=== PATIENT | male | born 1960 | race Caucasian/White ===

== ENCOUNTER → 2020-06-26 11:11 | Outpatient (BNVA) | payer SELFPAY | PROVIDERS: Visit Provider Urology ==

== ENCOUNTER 2020-08-03 07:27 | Day surgery (SDC) | payer OTHER, SELFPAY ==
[2020-07-29 13:43] VITALS: BMI 25.8
[2020-08-03] VITALS (8 sets, daily range): BP systolic 117–135; BP diastolic 77–83; PULSE 50–56; RESP 16–20; TEMP 36.1–36.5; O2SAT 97–100
[2020-08-03] MEDS: levoFLOXacin/D5W 500 MG/100 ML PIGGYBACK 100 MG IV (09:05)
--- NOTE | 2020-08-03 09:08 | HO.ANESPROP2 ---
HPI - Anesthesia Eval Consult details Narrative: 60 yo male patient for Laser ablation of prostate with green light PMFSH Active Problems Active Problems: All Active Problems (Updated 07/29/20 @ 13:40 by Sofi Turner) BPH (benign prostatic hyperplasia) (Acute) Past Medical History Medical History (Updated 07/29/20 @ 13:40 by Sofi Turner) BPH (benign prostatic hyperplasia) Enlarged prostate Hypothyroidism Family History Family history of problems with anesthesia: No Surgical History Surgical History (Updated 08/03/20 @ 09:42 by Mery Galeana) H/O mitral valve replacement History of thyroidectomy, subtotal History of Problems with Anesthesia: No Social History Social History (Updated 06/26/20 @ 11:54 by JEANNA Anglin) Patient Tobacco Use Status: Tobacco use Unknown Are you DNR?: No Advance Directives Information Provided: No Meds Allergies Allergy/AdvReac Type Severity Reaction Status Date / Time No Known Allergies Allergy Verified 06/26/20 11:52 Active Medications: Current Medications Generic Name Dose Route Start Last Admin Trade Name Uyen PRN Reason Stop Dose Admin Levofloxacin 500 mg in 100 mls @ 100 mls/hr 08/03/20 08:24 08/03/20 09:05 Levaquin IV 08/03/20 09:23 100 mls/hr PREOP ONE Administration Home Medications Medication Instructions Recorded Confirmed Last Taken Type doxycycline hyclate 100 mg tablet 100 mg PO BID 06/26/20 Unknown History levothyroxine 150 mcg tablet 150 mcg PO DAILY 06/26/20 07/29/20 Unknown History tamsulosin 0.4 mg capsule 0.8 mg PO DAILY 06/26/20 07/29/20 Unknown History Exam Exam Date and Time: August 03, 2020 0908 Height,Weight and Vital Signs: Height 5 ft 8 in Weight 77.111 kg Vital Signs Temp Pulse Resp BP Pulse Ox 08/03/20 09:06 97.7 F 50 20 125/78 100 Airway Mallampati Class: II TM Dist: >3cm Neck ROM: Full Heart: RRR Lungs: CTAB Assessment and Plan Assessment Anesthesia Assessment: Anesthesia Plan Discussed and Chart Reviewed Final Anesthetic Review NPO: Yes ASA Class: III Final Preanesthetic Review: No Changes in Pt Med Stat, Meds/Allgs Chart Reviewed, Consent Obtained/Reviewed and Anes Risks/Benef Reviewed Patient Risk: Intermediate Procedure Risk: Intermediate Assessment/Block/Sedation in SS: Assess/Block/Sedation-SS Anesthetic Plan Anesthetic Plan: GA Disposition: Standard PACU
--- NOTE | 2020-08-03 09:14 | MHC.SHP ---
Pre-Procedural Eval Section A The patient is an INPATIENT: No Changes since office visit: No Cold of Flu in the past 2 weeks, No New Medical Problems, No Changes in Medication and No Patient answered all questions The History & Physical has been completed within 30 days and I have reviewed it.: Yes Section B Chief Complaint: benign prostate hyperplasia Allergies: Allergies Allergy/AdvReac Type Severity Reaction Status Date / Time No Known Allergies Allergy Verified 06/26/20 11:52 Plan Diagnosis/Plan: Unchanged (laser prostatectomy) I have reviewed the history and physical and performed a pertinent physical examination on my patient. No changes have occurred unless specified.
[2020-08-03] MEDS: Lactated Ringers 1,000 ML 100 ML IVCONT (09:15)
--- NOTE | 2020-08-03 10:58 | W.PM.OPN ---
Operative Note Operative Note Date of Service: 08/03/20 Narrative: PreOperative Diagnosis: Bladder outlet obstruction Post Operative Diagnosis: Bladder outlet obstruction Procedure: GreenLight laser enucleation of the prostate Surgeon: Dr Rommel Sanchez Anesthesia: General Indications for procedure: History of bladder outlet obstruction. Treated with alpha-true and other medications. Still with symptoms. On cystoscopy in office has trilobar hypertrophy. Recommendation for prostate procedure with laser enucleation of prostate. It has been discussed. Focus was placed on development of retrograde examination which is a normal part of this procedure. Procedure: After informed consent was verified the patient was brought to the operating room and placed in a supine position. Anesthesia was administered per protocol. Patient was placed in modified dorsal lithotomy position and prepped and draped in a sterile fashion. Safety pause time-out was confirmed. Antibiotics have been given. Twenty-four Maltese laser cystoscope was inserted per urethra. No abnormalities found the anterior posterior urethra. The bladder was filled on both ureteric orifices were seen in normal position away from our area of interest. Using a GreenLight laser settings of 80 w incisions were made at the 5 and 7 o'clock position. They were taken down and then laterally on each side. They were brought from the bladder neck down to the level of the veru. These defined the lateral aspects of the median lobe area. The median lobe was ablated and enucleated tissue removed. Once the median lobe area had been cleaned attention was directed to the lateral lobes. We started with the patient's left lateral lobe. Firstly the 05:00 o'clock groove was further developed. This was moved in the lateral position to undermine the tissue on the lateral side. Focus was then placed on the laser at the 1 o'clock position in developing a secondary groove down to the level of bladder fibers. The intervening tissue between these 2 grooves was removed with a combination of enucleation ablation working from the apex toward the bladder neck. A similar procedure was repeated on the patient's right-hand side. When this was completed debris and pieces of prostate removed from the bladder. Both ureteric orifices were reviewed again in shown to be patent in away from any areas of energy damage. The apical area was reviewed in any stray ooze was controlled. A 22 Maltese 30 cc balloon Edward catheter was placed over stylet into the bladder. Clear efflux was obtained. 30 cc was placed in the balloon and gentle traction was placed. A snap was used to hold tension once the patient will be moved and transported. Once transportation its finish this novel be removed. A belladonna and opiate suppository was placed for postprocedure pain management. He tolerated procedure well was extubated in the operating and transferred in a stable condition to the recovery area. Total 214 kJ with 29.40 lasing time Pathology: Prostate tissue Drains: Edward catheter
[2020-08-03] MEDS: oxyCODONE HCl Immed Release 5 MG TABLET PO (11:36)
[2020-08-03] MEDS: Acetaminophen 325 MG TABLET 650 MG PO (11:37)
== END 2020-08-03 14:21 | disposition home or self-care (01) ==
PROVIDERS: Visit Provider Urology
PROC: (CPT 52648; principal; 2020-08-03 09:20)
DX: N40.1 Benign prostatic hyperplasia with lower urinary tract symptoms (principal); N13.8 Other obstructive and reflux uropathy; R33.8 Other retention of urine
CPT/HCPCS: 52649; 88305; J1100; J1956; J2250; J2405; J3010

== ENCOUNTER → 2020-08-06 08:48 | Outpatient (BNVA) | payer OTHER, SELFPAY | PROVIDERS: Visit Provider Urology | DX: N40.0 Benign prostatic hyperplasia without lower urinary tract symptoms (principal) | CPT/HCPCS: 51700 ==

== ENCOUNTER → 2020-10-14 15:35 | Outpatient (BNVA) | payer OTHER, SELFPAY | PROVIDERS: Visit Provider Urology ==